=== PATIENT | male | born 1930 | race Caucasian/White ===

== ENCOUNTER → 2018-03-06 | Outpatient (CLI) | payer MEDICARE ==
--- NOTE | 2018-03-06 16:01 | XR ---
EXAMINATION TYPE: XR chest 2V DATE OF EXAM: 03/06/2018 COMPARISON: 03/11/2010 TECHNIQUE: PA and lateral views submitted. HISTORY: Pain FINDINGS: The lungs are clear and there is no pneumothorax, pleural effusion, or focal pneumonia. Hyperinflati on noted. No sizable pneumothorax. Chronic appearing rib deformities noted. Atherosclerotic change ao rta and diffuse osteopenia. Arthropathy of the shoulders. Hypertrophic and degenerative changes of th e vertebral column. Chronic appearing rib deformities also noted involving the lower right rib cage. IMPRESSION: 1. No acute process. Chronic appearing rib deformities bilaterally. If there is concern for acute fra cture of the ribs recommend follow-up rib series.
== END ==
LOC: RADXRMAIN 15:32
PROVIDERS: ATTEND Family Medicine
DX: R07.81 Pleurodynia (principal)
CPT/HCPCS: 71046

== ENCOUNTER 2018-03-31 10:32 | Inpatient (IN) | payer MEDICARE ==
--- NOTE | 2018-03-31 10:57 | ED ---
General Adult HPI - General Chief complaint: Chest Pain Stated complaint: Chest pain, SOB Time Seen by Provider: 03/31/18 10:40 Source: patient, family, RN notes reviewed, old records reviewed Mode of arrival: wheelchair Limitations: no limitations - History of Present Illness Initial comments: 87-year-old male presents for evaluation of generalized weakness. Symptoms have been ongoing for the past 2 months. Patient has been seen by his primary care physician and 2 cardiologists for evaluation. He's had a Holter monitor, echo, and blood testing. He was found to be hypothyroid and was initiated on thyroid medication. Is also complaining of exertional dyspnea and some intermittent chest pain and upper back pain. He has no pain at the time my evaluation. No abdominal pain. No nausea vomiting. No fever or chills. - Related Data Home Medications Medication Instructions Recorded Confirmed Aspirin EC [Ecotrin Low Dose] 81 mg PO HS 03/31/18 03/31/18 Doxazosin [Cardura] 4 mg PO HS 03/31/18 03/31/18 Levothyroxine Sodium 12.5 mcg PO QAM 03/31/18 03/31/18 Simvastatin [Zocor] 20 mg PO HS 03/31/18 03/31/18 Allergies Allergy/AdvReac Type Severity Reaction Status Date / Time No Known Allergies Allergy Verified 03/31/18 10:39 Review of Systems ROS Statement: Those systems with pertinent positive or pertinent negative responses have been documented in the HPI. ROS Other: All systems not noted in ROS Statement are negative. Past Medical History Past Medical History: Cancer, Hyperlipidemia, Prostate Disorder, Thyroid Disorder Additional Past Medical History / Comment(s): skin cancer, low blood pressure History of Any Multi-Drug Resistant Organisms: None Reported Past Surgical History: Hernia Repair, Tonsillectomy Additional Past Surgical History / Comment(s): Angioplasty, Stent x2, skin cancer removal Past Psychological History: No Psychological Hx Reported Smoking Status: Never smoker Past Alcohol Use History: Occasional Past Drug Use History: None Reported General Exam Limitations: no limitations General appearance: alert, in no apparent distress Head exam: Present: atraumatic, normocephalic Eye exam: Present: normal appearance, PERRL ENT exam: Present: normal exam Neck exam: Present: normal inspection. Absent: tenderness, meningismus Respiratory exam: Present: normal lung sounds bilaterally. Absent: respiratory distress, wheezes Cardiovascular Exam: Present: regular rate, normal rhythm GI/Abdominal exam: Present: soft. Absent: distended, tenderness Extremities exam: Present: pedal edema Neurological exam: Present: alert, oriented X3, CN II-XII intact. Absent: motor sensory deficit Psychiatric exam: Present: normal affect, normal mood Skin exam: Present: warm, dry, intact. Absent: cyanosis, diaphoretic Course Vital Signs 03/31/18 10:33 Temperature 98.2 F Pulse Rate 60 Respiratory 16 Rate Blood Pressure 101/64 O2 Sat by Pulse 98 Oximetry EKG Findings - EKG Comments: EKG Findings:: of 94, there is left axis deviation and right bundle branch. Previous EKG from 2009 shows an incomplete right bundle with first-degree AV block. No ST segment elevation. Medical Decision Making - Medical Decision Making 87-year-old male presenting for ongoing symptoms of weakness, chest pain, and dyspnea. Chest x-ray negative for acute cardio pulmonary disease, no focal pneumonia. Patient has normal white blood cell count, hemoglobin is 10.2 with normal for comparison. CMP within normal limits, troponin negative, BNP is normal at 871. Urinalysis negative for signs of infection. Patient will be placed in observation, telemetry, serial cardiac enzymes, cardiology consultation and echo. Discussed with Dr. Solorzano who will accept. - Lab Data Result diagrams: 03/31/18 11:31 03/31/18 11:31 Lab Results 03/31/18 03/31/18 03/31/18 Range/Units 11:31 11:31 11:31 WBC 6.5 (3.8-10.6) k/uL RBC 2.92 L (4.30-5.90) m/uL Hgb 10.2 L (13.0-17.5) gm/dL Hct 29.3 L (39.0-53.0) % MCV 100.5 H (80.0-100.0) fL MCH 34.9 (25.0-35.0) pg MCHC 34.8 (31.0-37.0) g/dL RDW 15.6 H (11.5-15.5) % Plt Count 149 L (150-450) k/uL Neutrophils % 67 % Lymphocytes % 19 % Monocytes % 8 % Eosinophils % 3 % Basophils % 0 % Neutrophils # 4.4 (1.3-7.7) k/uL Lymphocytes # 1.2 (1.0-4.8) k/uL Monocytes # 0.5 (0-1.0) k/uL Eosinophils # 0.2 (0-0.7) k/uL Basophils # 0.0 (0-0.2) k/uL Macrocytosis Slight PT (9.0-12.0) sec INR (<1.2) APTT (22.0-30.0) sec Sodium 139 (137-145) mmol/L Potassium 4.9 (3.5-5.1) mmol/L Chloride 109 H (98-107) mmol/L Carbon Dioxide 23 (22-30) mmol/L Anion Gap 7 mmol/L BUN 24 H (9-20) mg/dL Creatinine 1.22 (0.66-1.25) mg/dL Est GFR (CKD-EPI)AfAm 61 (>60 ml/min/1.73 sqM) Est GFR (CKD-EPI)NonAf 52 (>60 ml/min/1.73 sqM) Glucose 94 (74-99) mg/dL Calcium 9.5 (8.4-10.2) mg/dL Magnesium 2.0 (1.6-2.3) mg/dL Total Bilirubin 0.5 (0.2-1.3) mg/dL AST 20 (17-59) U/L ALT 23 (21-72) U/L Alkaline Phosphatase 55 (38-126) U/L Total Creatine Kinase 31 L (55-170) U/L CK-MB (CK-2) 0.5 (0.0-2.4) ng/mL CK-MB (CK-2) Rel Index 1.6 Troponin I <0.012 (0.000-0.034) ng/mL NT-Pro-B Natriuret Pep pg/mL Total Protein 5.9 L (6.3-8.2) g/dL Albumin 3.3 L (3.5-5.0) g/dL Urine Color Urine Appearance (Clear) Urine pH (5.0-8.0) Ur Specific [place] (1.001-1.035) Urine Protein (Negative) Urine Glucose (UA) (Negative) Urine Ketones (Negative) Urine Blood (Negative) Urine Nitrite (Negative) Urine Bilirubin (Negative) Urine Urobilinogen (<2.0) mg/dL Ur Leukocyte Esterase (Negative) 03/31/18 03/31/18 03/31/18 Range/Units 11:31 11:31 11:44 WBC (3.8-10.6) k/uL RBC (4.30-5.90) m/uL Hgb (13.0-17.5) gm/dL Hct (39.0-53.0) % MCV (80.0-100.0) fL MCH (25.0-35.0) pg MCHC (31.0-37.0) g/dL RDW (11.5-15.5) % Plt Count (150-450) k/uL Neutrophils % % Lymphocytes % % Monocytes % % Eosinophils % % Basophils % % Neutrophils # (1.3-7.7) k/uL Lymphocytes # (1.0-4.8) k/uL Monocytes # (0-1.0) k/uL Eosinophils # (0-0.7) k/uL Basophils # (0-0.2) k/uL Macrocytosis PT 10.1 (9.0-12.0) sec INR 1.0 (<1.2) APTT 20.4 L (22.0-30.0) sec Sodium (137-145) mmol/L Potassium (3.5-5.1) mmol/L Chloride (98-107) mmol/L Carbon Dioxide (22-30) mmol/L Anion Gap mmol/L BUN (9-20) mg/dL Creatinine (0.66-1.25) mg/dL Est GFR (CKD-EPI)AfAm (>60 ml/min/1.73 sqM) Est GFR (CKD-EPI)NonAf (>60 ml/min/1.73 sqM) Glucose (74-99) mg/dL Calcium (8.4-10.2) mg/dL Magnesium (1.6-2.3) mg/dL Total Bilirubin (0.2-1.3) mg/dL AST (17-59) U/L ALT (21-72) U/L Alkaline Phosphatase (38-126) U/L Total Creatine Kinase (55-170) U/L CK-MB (CK-2) (0.0-2.4) ng/mL CK-MB (CK-2) Rel Index Troponin I (0.000-0.034) ng/mL NT-Pro-B Natriuret Pep 871 pg/mL Total Protein (6.3-8.2) g/dL Albumin (3.5-5.0) g/dL Urine Color Yellow Urine Appearance Clear (Clear) Urine pH 5.5 (5.0-8.0) Ur Specific [place] 1.011 (1.001-1.035) Urine Protein Negative (Negative) Urine Glucose (UA) Negative (Negative) Urine Ketones Negative (Negative) Urine Blood Negative (Negative) Urine Nitrite Negative (Negative) Urine Bilirubin Negative (Negative) Urine Urobilinogen <2.0 (<2.0) mg/dL Ur Leukocyte Esterase Negative (Negative) Disposition Clinical Impression: Chest pain, Generalized weakness Disposition: ADMITTED IP TO THIS HOSP Condition: Stable Is patient prescribed a controlled substance at d/c from ED?: No Referrals: Sam Solorzano MD [Primary Care Provider] - 1-2 days Decision to Admit Reason: Admit from EC Decision Date: 03/31/18 Decision Time: 13:15
[2018-03-31 11:57] LABS: Appearance,Urine Clear (Clear); Bilirubin,Urine Negative (Negative); Blood,Urine Negative (Negative); Color,Urine Yellow; Glucose,Urine (UA) Negative (Negative); Ketones,Urine Negative (Negative); Leukocyte Esterase,Urine Negative (Negative); Nitrite,Urine Negative (Negative); PH, Urine 5.5 (5.0-8.0); Protein,Urine Negative (Negative); Specific Gravity,Urine 1.011 (1.001-1.035); Urobilinogen,Urine <2.0 mg/dL (<2.0)
[2018-03-31 12:05] LABS: Basophils % (A) 0 %; Eosinophils # (A) 0.2 k/uL (0-0.7); Eosinophils % (A) 3 %; HCT 29.3 % (39.0-53.0); HGB 10.2 gm/dL (13.0-17.5); Lymphocytes # (A) 1.2 k/uL (1.0-4.8); Lymphocytes % (A) 19 %; MCH 34.9 pg (25.0-35.0); MCHC 34.8 g/dL (31.0-37.0); MCV 100.5 fL (80.0-100.0); Macrocytosis Slight; Monocytes # (A) 0.5 k/uL (0-1.0); Monocytes % (A) 8 %; Neutrophils # (A) 4.4 k/uL (1.3-7.7); Neutrophils % (A) 67 %; Platelet Count 149 k/uL (150-450); RBC 2.92 m/uL (4.30-5.90); RDW 15.6 % (11.5-15.5); WBC 6.5 k/uL (3.8-10.6)
--- NOTE | 2018-03-31 12:07 | XR ---
EXAMINATION TYPE: XR chest 2V DATE OF EXAM: 03/31/2018 COMPARISON: Chest x-ray March 06, 2018 HISTORY: Chest pain and shortness of breath TECHNIQUE: Frontal and lateral views of the chest are obtained. FINDINGS: There is chronic parenchymal change without focal air space opacity, pleural effusion, or pneumothorax seen. The cardiac silhouette size is stable and within normal limits with atherosclerot ic and ectatic aorta. There is multilevel spurring in the thoracic spine. Underlying scoliosis is pre sent. Demineralization is seen. Old fracture posterior left seventh rib and likely eighth rib are red emonstrated. IMPRESSION: Chronic parenchymal changes without new suspicious acute pulmonary process.
[2018-03-31 12:16] LABS: Albumin 3.3 g/dL (3.5-5.0); Calcium 9.5 mg/dL (8.4-10.2); Potassium 4.9 mmol/L (3.5-5.1); Total Bilirubin 0.5 mg/dL (0.2-1.3); Total Protein 5.9 g/dL (6.3-8.2)
[2018-03-31 12:22] LABS: Prothrombin Time 10.1 sec (9.0-12.0)
[2018-03-31 12:25] LABS: Partial Thromboplastin Time 20.4 sec (22.0-30.0)
[2018-03-31 12:38] LABS: Creatine Kinase 31 U/L (55-170)
[2018-03-31 12:51] LABS: Creatine Kinase MB 0.5 ng/mL (0.0-2.4); Troponin I <0.012 ng/mL (0.000-0.034)
[2018-03-31] MEDS ORDERED: ASPIRIN 325 MG TAB PO STA (12:53)
[2018-03-31] MEDS ORDERED: ACETAMINOPHEN TAB 325 MG TAB PO PRN (13:15)
[2018-03-31] MEDS ORDERED: NALOXONE 0.4 MG/ML 1 ML VIAL IV PRN (13:15)
[2018-03-31] MEDS: SODIUM CHLORIDE 0.9% 1,000 ML IV SCH (13:29)
[2018-03-31] MEDS ORDERED: INFLUENZA VACCINE (6 MOS+) 60 MCG/0.5 ML SYRINGE IM ONE (14:15)
[2018-03-31 17:55] LABS: Creatine Kinase 26 U/L (55-170)
[2018-03-31 18:08] LABS: Creatine Kinase MB 0.5 ng/mL (0.0-2.4); Troponin I <0.012 ng/mL (0.000-0.034)
[2018-03-31] MEDS: DOXAZOSIN 4 MG TAB PO SCH (20:11)
[2018-03-31] MEDS: ATORVASTATIN 10 MG TAB PO SCH (20:11)
[2018-03-31] MEDS: ASPIRIN 81 MG PO SCH (20:11)
[2018-04-01 00:23] LABS: Creatine Kinase 26 U/L (55-170)
[2018-04-01 00:36] LABS: Creatine Kinase MB 0.4 ng/mL (0.0-2.4); Troponin I <0.012 ng/mL (0.000-0.034)
[2018-04-01] MEDS: LEVOTHYROXINE 25 MCG TAB PO SCH (06:01)
[2018-04-01 08:17] LABS: Basophils % (A) 0 %; Eosinophils # (A) 0.3 k/uL (0-0.7); Eosinophils % (A) 5 %; HCT 27.3 % (39.0-53.0); HGB 9.5 gm/dL (13.0-17.5); Lymphocytes # (A) 1.2 k/uL (1.0-4.8); Lymphocytes % (A) 20 %; MCH 35.4 pg (25.0-35.0); MCHC 34.7 g/dL (31.0-37.0); Macrocytosis Slight; Mean Platelet Volume 9.4; Monocytes # (A) 0.5 k/uL (0-1.0); Monocytes % (A) 9 %; Neutrophils # (A) 3.7 k/uL (1.3-7.7); Neutrophils % (A) 63 %; Platelet Count 129 k/uL (150-450); RBC 2.67 m/uL (4.30-5.90); RDW 15.8 % (11.5-15.5); WBC 5.9 k/uL (3.8-10.6)
--- NOTE | 2018-04-01 08:19 | P.HPIM ---
History of Present Illness H&P Date: 04/01/18 Review of Systems Constitutional: Reports weakness Eyes: denies blurred vision, denies pain Ears, nose, mouth and throat: Denies headache, Denies sore throat Cardiovascular: Denies chest pain, Denies shortness of breath Respiratory: Denies cough Gastrointestinal: Denies abdominal pain, Denies diarrhea, Denies nausea, Denies vomiting Past Medical History Past Medical History: Coronary Artery Disease (CAD), Cancer, Hyperlipidemia, Prostate Disorder, Syncope, Thyroid Disorder Additional Past Medical History / Comment(s): Syncope in past and recently, recent falls, orthostatic hypotension, hypotension, melanoma removed 02/2018 RFA , recently told he had a R side of heart issue-either congenital or a past event , recently told he has hypothyroid and anemia, BPH, cervical pain. History of Any Multi-Drug Resistant Organisms: None Reported Past Surgical History: Heart Catheterization With Stent, Hernia Repair, Tonsillectomy Additional Past Surgical History / Comment(s): PCI with 2 stents, LFA melanoma skin cancer removed, laser surgery to bilateral eyes/cataract removals, L inguinal hernia repair, Past Anesthesia/Blood Transfusion Reactions: No Reported Reaction Date of Last Stent Placement:: 1995? Smoking Status: Never smoker - Past Family History Father History Unknown: Yes Additional Family Medical History / Comment(s): Pt is adopted and does not know mother/father history. Medications and Allergies Home Medications Medication Instructions Recorded Confirmed Type Aspirin EC [Ecotrin Low Dose] 81 mg PO HS 03/31/18 03/31/18 History RX: Doxazosin [Cardura] 4 mg PO HS 03/31/18 03/31/18 History RX: Levothyroxine Sodium 12.5 mcg PO QAM 03/31/18 03/31/18 History RX: Simvastatin [Zocor] 20 mg PO HS 03/31/18 03/31/18 History Allergies Allergy/AdvReac Type Severity Reaction Status Date / Time No Known Allergies Allergy Verified 03/31/18 10:39 Physical Exam Vitals: Vital Signs Temp Pulse Pulse Resp BP BP Pulse Ox 04/01/18 07:30 97.8 F 53 L 18 170/65 97 04/01/18 03:51 18 04/01/18 03:25 97.5 F L 53 L 18 127/65 96 04/01/18 00:00 18 03/31/18 23:25 97.6 F 56 L 18 158/68 97 03/31/18 20:00 18 03/31/18 19:10 97.6 F 54 L 18 98/55 96 03/31/18 14:35 97.5 F L 48 L 18 161/72 96 03/31/18 13:18 50 L 18 159/79 97 03/31/18 10:33 98.2 F 60 16 101/64 98 Intake and Output 03/31/18 04/01/18 04/01/18 22:59 06:59 14:59 Intake Total 118 Balance 118 Intake: Oral 118 Other: # Voids 2 2 - Constitutional General appearance: no acute distress - EENT Eyes: EOMI - Neck Neck: no lymphadenopathy - Respiratory Respiratory: bilateral: CTA - Cardiovascular Rhythm: regular Heart sounds: normal: S1, S2 Abnormal Heart Sounds: S3 Gallop - Gastrointestinal General gastrointestinal: soft, no tenderness - Psychiatric Psychiatric: A&O x's 3, appropriate affect Results CBC & Chem 7: 03/31/18 11:31 03/31/18 11:31 Labs: Abnormal Lab Results - Last 24 Hours (Table) 03/31/18 03/31/18 03/31/18 Range/Units 11:31 11:31 11:31 RBC 2.92 L (4.30-5.90) m/uL Hgb 10.2 L (13.0-17.5) gm/dL Hct 29.3 L (39.0-53.0) % MCV 100.5 H (80.0-100.0) fL RDW 15.6 H (11.5-15.5) % Plt Count 149 L (150-450) k/uL APTT (22.0-30.0) sec Chloride 109 H (98-107) mmol/L BUN 24 H (9-20) mg/dL Total Creatine Kinase 31 L (55-170) U/L Total Protein 5.9 L (6.3-8.2) g/dL Albumin 3.3 L (3.5-5.0) g/dL 03/31/18 03/31/18 03/31/18 Range/Units 11:31 17:09 23:48 RBC (4.30-5.90) m/uL Hgb (13.0-17.5) gm/dL Hct (39.0-53.0) % MCV (80.0-100.0) fL RDW (11.5-15.5) % Plt Count (150-450) k/uL APTT 20.4 L (22.0-30.0) sec Chloride (98-107) mmol/L BUN (9-20) mg/dL Total Creatine Kinase 26 L 26 L (55-170) U/L Total Protein (6.3-8.2) g/dL Albumin (3.5-5.0) g/dL Thrombosis Risk Factor Assmnt - Choose All That Apply Any of the Below Risk Factors Present?: Yes Each Factor Represents 1 point: Obesity (BMI >25) Other Risk Factors: Yes Each Risk Factor Represents 2 Points: Malignancy Each Risk Factor Represents 3 Points: Age 75 years or older Other congenital or acquired thrombophilia - If yes, enter type in comment: No Thrombosis Risk Factor Assessment Total Risk Factor Score: 6 Thrombosis Risk Factor Assessment Level: High Risk Assessment and Plan (1) BPH (benign prostatic hyperplasia) Current Visit: Yes Status: Acute Code(s): N40.0 - BENIGN PROSTATIC HYPERPLASIA WITHOUT LOWER URINRY TRACT SYMP SNOMED Code(s): 777127691 (2) Chest pain Current Visit: Yes Status: Acute Code(s): R07.9 - CHEST PAIN, UNSPECIFIED SNOMED Code(s): 69434148 (3) Generalized weakness Current Visit: Yes Status: Acute Code(s): R53.1 - WEAKNESS SNOMED Code(s) : 05510414 Plan: Rule out myocardial infarction. Question need for physical therapy for ambulation. The patient states high fall risk in the last several months. The patient otherwise has good family support. Check cardiac enzymes. Reconcile home medications. Await cardiology consultation. See orders otherwise. Time with Patient: Greater than 30
[2018-04-01 08:32] LABS: Albumin 2.8 g/dL (3.5-5.0); Calcium 9.1 mg/dL (8.4-10.2); Potassium 4.7 mmol/L (3.5-5.1); Total Bilirubin 0.4 mg/dL (0.2-1.3); Total Protein 5.3 g/dL (6.3-8.2)
[2018-04-01 10:03] LABS: T4, Free (Free Thyroxine) 1.14 ng/dL (0.78-2.19)
--- NOTE | 2018-04-01 12:40 | P.CRDCN ---
History of Present Illness History of present illness: Mr. Nicole is seen and examined sitting up in bed talking to his granddaughter on the phone. Past medical history significant for coronary artery disease s/p stenting to mid LAD 2015, carotid artery disease, dyslipidemia, hypothyroidism and BPH. He follows with Dr. Rodríguez in the office. We have been asked to see him in consultation for chest pain. When talking with the patient he states that he has been feeling increasingly tired, weak and dizzy over the past 2 years that seems to be getting progressively worse. His granddaughter on the phone states that he has been having syncopal episodes and gets dizzy with standing. He has been seen recently by Dr. Rodríguez and he underwent outpatient event monitoring that revealed sinus rhythm wit no pauses or arrhythmias. Heart rate ranging from 39-97 bpm. The low heart rate 39 was 10 5 in the morning presumably when the patient was asleep. There were no entries in the diary for the duration of the study. She also underwent echocardiogram at that time which thousand and 18 which revealed preserved left ventricular systolic function with ejection fraction 55% and mild mitral regurgitation, carotid duplex performed at that time as well reveals 16-49% stenosis bilaterally. Stable from previous exam. His granddaughter states they obtained a second opinion from Dr. Simon at [facility]. He has well did monitor which revealed no significant arrhythmias, no pauses or no bradycardia events. Average heart rate was 64 bpm. The patient states when he had the syncopal episode 2 weeks ago he stood up from a sitting position walked into the kitchen became acutely dizzy and fell forward onto the counter. He denies feeling symptoms of chest discomfort, shortness of breath, palpitations, diaphoresis, nausea or vomiting associated with this event. He states he frequently gets dizzy when changing positions. Blood pressures since admission have fluctuated from 98/55-170/65. EKG on arrival reveals sinus mechanism with right bundle branch block pattern first-degree AV block heart rate of 47. Chest x-ray negative for an acute cardiopulmonary process. Laboratory data reviewed, WBC 5.9, hemoglobin 9.5, platelets 129, sodium 138, potassium 4.7, creatinine 1.12, magnesium 2.0, cardiac enzymes negative 3, NT proBNP 871, TSH 5.97 and free T4 1.14. Current daily medications include doxazosin 4 mg at bedtime, aspirin 81 mg daily , simvastatin 20 mg daily and little thyrotoxic. At the time of my exam: CONSTITUTIONAL: Denies fever. Denies chills. EYES: Denies blurred vision. Denies vision changes. Denies eye pain. EARS, NOSE, MOUTH & THROAT: Denies headache. Denies sore throat. Denies ear pain. CARDIOVASCULAR: Denies chest pain. Denies shortness of breath. Denies orthopnea. Denies PND. Denies palpitations. RESPIRATORY: Denies cough. GASTROINTESTINAL: Denies abdominal pain. Denies diarrhea. Denies constipation. Denies nausea. Denies vomiting. MUSCULOSKELETAL: Denies myalgias. INTEGUMENTARY: Denies pruitis. Denies rash. NEUROLOGIC: Denies numbness. Denies tingling. Complains of weakness. PSYCHIATRIC: Denies anxiety. Denies depression. ENDOCRINE: Complains of fatigue. Denies weight change. Denies polydipsia. Denies polyurina. GENITOURINARY: Denies burning, hematuria or urgency with micturation. HEMATOLOGIC: Denies history of anemia. Denies bleeding. Blood pressure 100/61 heart rate 61 afebrile maintaining oxygen saturation on room air GENERAL: This is a 87-year-old male in no apparent distress at the time of my examination. HEENT: Head is atraumatic, normocephalic. Pupils are equal, round. Sclerae anicteric. Conjunctivae are clear. Mucous membranes of the mouth are moist. Neck is supple. There is no jugular venous distention. Left carotid bruit is heard, none on the right. LUNGS: Clear to auscultation no wheezes, rales or rhonchi. No chest wall tenderness is noted on palpation or with deep breathing. HEART: Regular rate and rhythm without murmurs, rubs or gallops. S1 and S2 heard. ABDOMEN: Soft, nontender. Bowel sounds are heard. No organomegaly noted. EXTREMITIES: No evidence of peripheral edema and no calf tenderness noted. VASCULAR: Radial and dorsalis pedis pulses palpated, no evidence of clubbing. NEUROLOGIC: Patient is awake, alert and oriented x3. ASSESSMENT Generalized weakness and fatigue, progressive for the past 2 years. History of exertional dizziness and syncope History of coronary artery disease BPH on cardura Dyslipidemia Hypothyroidism Anemia, denies overt bleeding or history of. Thrombocytopenia PLAN An acute coronary event has been ruled out. All pertinent records have been reviewed from Dr. Rodríguez and Dr. Urbina. There is no evidence of bradycardia arrhythmia or sinus pauses to explain his symptoms. Blood pressure trending here indicates quite a fluctuation that may be to explain for his symptoms. Discussed with him using Flomax instead of cardura and granddaughter states he has tried that and it doesn't work. Patient aware that he should change positions slowly and use compression stockings. No further cardiac workup at this time. Follow up with Dr. Rodríguez upon discharge. Thank you kindly for this consultation. Nurse Practitioner note has been reviewed, I agree with a documented findings and plan of care. Patient was seen and examined. Past Medical History Past Medical History: Coronary Artery Disease (CAD), Cancer, Hyperlipidemia, Prostate Disorder, Syncope, Thyroid Disorder Additional Past Medical History / Comment(s): Syncope in past and recently, recent falls, orthostatic hypotension, hypotension, melanoma removed 02/2018 RFA , recently told he had a R side of heart issue-either congenital or a past event , recently told he has hypothyroid and anemia, BPH, cervical pain. History of Any Multi-Drug Resistant Organisms: None Reported Past Surgical History: Heart Catheterization With Stent, Hernia Repair, Tonsillectomy Additional Past Surgical History / Comment(s): PCI with 2 stents, LFA melanoma skin cancer removed, laser surgery to bilateral eyes/cataract removals, L inguinal hernia repair, Past Anesthesia/Blood Transfusion Reactions: No Reported Reaction Date of Last Stent Placement:: 1995? Smoking Status: Never smoker - Past Family History Father History Unknown: Yes Additional Family Medical History / Comment(s): Pt is adopted and does not know mother/father history. Medications and Allergies Home Medications Medication Instructions Recorded Confirmed Type Aspirin EC [Ecotrin Low Dose] 81 mg PO HS 03/31/18 03/31/18 History Doxazosin [Cardura] 4 mg PO HS 03/31/18 03/31/18 History Levothyroxine Sodium 12.5 mcg PO QAM 03/31/18 03/31/18 History Simvastatin [Zocor] 20 mg PO HS 03/31/18 03/31/18 History Allergies Allergy/AdvReac Type Severity Reaction Status Date / Time No Known Allergies Allergy Verified 03/31/18 10:39 Physical Exam Vitals: Vital Signs Temp Pulse Pulse Resp BP BP Pulse Ox 04/01/18 07:30 97.8 F 53 L 18 170/65 97 04/01/18 03:51 18 04/01/18 03:25 97.5 F L 53 L 18 127/65 96 04/01/18 00:00 18 03/31/18 23:25 97.6 F 56 L 18 158/68 97 03/31/18 20:00 18 03/31/18 19:10 97.6 F 54 L 18 98/55 96 03/31/18 14:35 97.5 F L 48 L 18 161/72 96 03/31/18 13:18 50 L 18 159/79 97 03/31/18 10:33 98.2 F 60 16 101/64 98 Intake and Output 03/31/18 04/01/18 04/01/18 22:59 06:59 14:59 Intake Total 118 Balance 118 Intake: Oral 118 Other: # Voids 2 2 Results 04/01/18 07:50 04/01/18 07:50 Cardiac Enzymes 03/31/18 03/31/18 03/31/18 Range/Units 11:31 11:31 17:09 AST 20 (17-59) U/L CK-MB (CK-2) 0.5 0.5 (0.0-2.4) ng/mL Troponin I <0.012 <0.012 (0.000-0.034) ng/mL 03/31/18 Range/Units 23:48 AST (17-59) U/L CK-MB (CK-2) 0.4 (0.0-2.4) ng/mL Troponin I <0.012 (0.000-0.034) ng/mL Coagulation 03/31/18 Range/Units 11:31 PT 10.1 (9.0-12.0) sec APTT 20.4 L (22.0-30.0) sec CBC 03/31/18 Range/Units 11:31 WBC 6.5 (3.8-10.6) k/uL RBC 2.92 L (4.30-5.90) m/uL Hgb 10.2 L (13.0-17.5) gm/dL Hct 29.3 L (39.0-53.0) % Plt Count 149 L (150-450) k/uL Comprehensive Metabolic Panel 03/31/18 Range/Units 11:31 Sodium 139 (137-145) mmol/L Potassium 4.9 (3.5-5.1) mmol/L Chloride 109 H (98-107) mmol/L Carbon Dioxide 23 (22-30) mmol/L BUN 24 H (9-20) mg/dL Creatinine 1.22 (0.66-1.25) mg/dL Glucose 94 (74-99) mg/dL Calcium 9.5 (8.4-10.2) mg/dL AST 20 (17-59) U/L ALT 23 (21-72) U/L Alkaline Phosphatase 55 (38-126) U/L Total Protein 5.9 L (6.3-8.2) g/dL Albumin 3.3 L (3.5-5.0) g/dL Current Medications Generic Name Dose Route Start Last Admin Trade Name Freq PRN Reason Stop Dose Admin Acetaminophen 650 mg 03/31/18 13:15 Tylenol Tab PO Q6HR PRN Mild Pain or Fever > 100.5 Aspirin 81 mg 03/31/18 21:00 03/31/18 20:11 Aspirin PO 81 mg HS JOSE ALFREDO Administration Atorvastatin Calcium 10 mg 03/31/18 21:00 03/31/18 20:11 Lipitor PO 10 mg HS JOSE ALFREDO Administration Doxazosin Mesylate 4 mg 03/31/18 21:00 03/31/18 20:11 Cardura PO 4 mg HS JOSE ALFREDO Administration Sodium Chloride 1,000 mls @ 75 mls/hr 03/31/18 13:00 03/31/18 13:29 Saline 0.9% IV 75 mls/hr .[id number] JOSE ALFREDO Administration Levothyroxine Sodium 12.5 mcg 04/01/18 06:30 04/01/18 06:01 Synthroid PO Not Given 0630 JOSE ALFREDO Naloxone HCl 0.2 mg 03/31/18 13:15 Narcan IV Q2M PRN Opioid Reversal Intake and Output 03/31/18 04/01/18 04/01/18 22:59 06:59 14:59 Intake Total 118 Balance 118 Intake: Oral 118 Other: # Voids 2 2 03/31/18 11:31 03/31/18 11:31
[2018-04-01] MEDS: SODIUM CHLORIDE 0.9% 1,000 ML IV SCH ×2 (14:03→21:26)
[2018-04-01] MEDS: ASPIRIN 81 MG PO SCH (21:26)
[2018-04-01] MEDS: ATORVASTATIN 10 MG TAB PO SCH (21:26)
[2018-04-01] MEDS: DOXAZOSIN 4 MG TAB PO SCH (21:57)
[2018-04-02] MEDS: SODIUM CHLORIDE 0.9% 1,000 ML IV SCH (05:38)
[2018-04-02] MEDS: LEVOTHYROXINE 25 MCG TAB PO SCH (05:40)
--- NOTE | 2018-04-02 07:44 | P.DS ---
Providers Date of admission: 04/01/18 14:16 Attending physician: Sam Solorzano Consults: 03/31/18 13:16 Consult Physician Routine Consulting Provider: Lorna Rabago Consult Reason/Comments: CP Do you want consulting provider notified?: Yes Primary care physician: Sam Solorzano - Discharge Diagnosis(es) (1) BPH (benign prostatic hyperplasia) Current Visit: Yes Status: Acute (2) Chest pain Current Visit: Yes Status: Acute (3) Generalized weakness Current Visit: Yes Status: Acute Patient Condition at Discharge: Stable Plan - Discharge Summary Discharge Rx Participant: No New Discharge Prescriptions: Continue Doxazosin [Cardura] 4 mg PO HS Aspirin EC [Ecotrin Low Dose] 81 mg PO HS Simvastatin [Zocor] 20 mg PO HS Levothyroxine Sodium 12.5 mcg PO QAM Discharge Medication List Aspirin EC [Ecotrin Low Dose] 81 mg PO HS 03/31/18 [History] Doxazosin [Cardura] 4 mg PO HS 03/31/18 [History] Levothyroxine Sodium 12.5 mcg PO QAM 03/31/18 [History] Simvastatin [Zocor] 20 mg PO HS 03/31/18 [History] Follow up Appointment(s)/Referral(s): David Rodríguez MD [STAFF PHYSICIAN] - 2 Weeks Sam Solorzano MD [Primary Care Provider] - 1 Week Discharge Disposition: HOME WITH HOME HEALTH SERVICES
[2018-04-02 07:57] VITALS: BP 185/72; PULSE 42; RESP 12; TEMP 98.3
--- NOTE | 2018-04-02 11:06 | ECHOF ---
Referral Reason:cp MEASUREMENTS -------- HEIGHT: 177.8 cm WEIGHT: 104.3 kg BP: 159/79 RVIDd: 3.4 cm (< 3.3) IVSd: 1.4 cm (0.6 - 1.1) LVIDd: 5.4 cm (3.9 - 5.3) LVPWd: 1.2 cm (0.6 - 1.1) IVSs: 2.1 cm LVIDs: 4.5 cm LVPWs: 1.7 cm LA Diam: 3.5 cm (2.7 - 3.8) LAESV Index (A-L): 28.26 ml/m Ao Diam: 3.7 cm (2.0 - 3.7) AV Cusp: 2.5 cm (1.5 - 2.6) MV EXCURSION: 13.536 mm (> 18.000) MV EF SLOPE: 20 mm/s (70 - 150) EPSS: 1.3 cm MV E Wagner: 0.42 m/s MV DecT: 641 ms MV A Wagner: 0.86 m/s MV E/A Ratio: 0.49 AR PHT: 1492 ms FINDINGS -------- Sinus rhythm. This was a technically adequate study. The left ventricular size is normal. There is moderate concentric left ventricular hypertrophy. O verall left ventricular systolic function is normal with, an EF between 55 - 60 %. The right ventricle is mildly enlarged. Normal LA size by volume 22+/-6 ml/m2. The right atrium is normal in size. The aortic valve is trileaflet and appears structurally normal. There is mild aortic regurgitation. Mild mitral annular calcification present. There is trace to mild mitral regurgitation. The tricuspid valve appears structurally normal. The pulmonic valve was not well visualized. The aortic root size is normal. IVC Not well visulized. There is no pericardial effusion. CONCLUSIONS -------- 1. Sinus rhythm. 2. This was a technically adequate study. 3. The left ventricular size is normal. 4. There is moderate concentric left ventricular hypertrophy. 5. Overall left ventricular systolic function is normal with, an EF between 55 - 60 %. 6. The right ventricle is mildly enlarged. 7. Normal LA size by volume 22+/-6 ml/m2. 8. The right atrium is normal in size. 9. The aortic valve is trileaflet and appears structurally normal. 10. There is mild aortic regurgitation. 11. Mild mitral annular calcification present. 12. There is trace to mild mitral regurgitation. 13. The tricuspid valve appears structurally normal. 14. The pulmonic valve was not well visualized. 15. The aortic root size is normal. 16. IVC Not well visulized. 17. There is no pericardial effusion. PLANT SCIENCE PROFESSOR: Aurora Kirkland RDCS
== END 2018-04-02 16:48 | disposition home health service (06) | DRG 313 ==
LOC: EC 10:32 → 1SOBS 13:16 → OBSVTOIN 04-01 14:16 → 4SSUR 04-01 18:58
PROVIDERS: ADMIT Family Medicine; ATTEND Family Medicine
DX: R07.9 Chest pain, unspecified (principal); R53.1 Weakness; D64.9 Anemia, unspecified; D69.6 Thrombocytopenia, unspecified; E03.9 Hypothyroidism, unspecified; E78.5 Hyperlipidemia, unspecified; I25.10 Atherosclerotic heart disease of native coronary artery without angina pectoris; I34.0 Nonrheumatic mitral (valve) insufficiency; I44.0 Atrioventricular block, first degree; N40.0 Benign prostatic hyperplasia without lower urinary tract symptoms; Z79.82 Long term (current) use of aspirin; Z79.899 Other long term (current) drug therapy; Z85.820 Personal history of malignant melanoma of skin; Z91.81 History of falling; Z95.5 Presence of coronary angioplasty implant and graft; Z79.890 Hormone replacement therapy
CPT/HCPCS: 36415; 71046; 80053; 81003; 82550; 82553; 83735; 83880; 84439; 84443; 84484; 85025; 85610; 85730; 90686; 93005; 93306; 94760; 96360; 99285